=== PATIENT | female | born 1985 | race Caucasian/White ===

== ENCOUNTER → 2017-01-27 | Outpatient (CLI) | payer OTHER | LOC: FIMAGING 07:21 | PROVIDERS: ATTEND Obstetrics & Gynecology | DX: Z03.89 Encounter for observation for other suspected diseases and conditions ruled out (principal); Z15.09 Genetic susceptibility to other malignant neoplasm ==

== ENCOUNTER → 2018-05-04 | Outpatient (CLI) | payer OTHER | LOC: FIMAGING 12:27 | PROVIDERS: ATTEND Obstetrics & Gynecology | DX: O09.512 Supervision of elderly primigravida, second trimester (principal); Z3A.20 20 weeks gestation of pregnancy ==

== ENCOUNTER 2018-08-28 07:43 | Day surgery (SDC) | payer OTHER ==
--- NOTE | 2018-08-25 13:30 | PDGENHP ---
History and Physical - Chief Complaint breech presentation - History of Present Illness 33 yo G1 at 36w4d by LMP c/w 9 wk US, with breech presentation, desires attempt at External Cephalic Version. Office visit 08/25/18 - breech presentation confirmed by Dr. Garcia, along with MVP of 4.0 cm, and SHIVAM of 12.0 cm. C/S at 39 wk vs attempt at ECV discussed. Good FM, no VB, no LOF, no ssx preeclampsia. course c/b: 1) AMA - neg NIPT and no abnormalities on MFM US aat 20 wk. 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 Has had 4 colonoscopies with polyp removals. Last one 09/2017. 3) marginal cord insertion - EFW 51% at 20 wk, 75% at 30 wk 4) Anemia - 11.6/33.5 at 28 wk - pt on daily iron labs: O pos Rub Imm GBS pending at time of H&P on 08/25/18 13.9/39.2 early 1hr GTT 102 RPR NR HBsAG neg HIV neg Std panel neg UDS neg UA/U cx neg/neg Pap neg, HPV neg AFP neg Innatal neg Varicella Imm 28wk: 11.6/33.5 1 hr GTT 139 3 hr GTT 85/142/121/101 History Information - Allergies/Home Medication List Allergies/Adverse Reactions: No Known Allergies Allergy (Unverified 08/25/18 13:30) I have personally reviewed and updated: family history, medical history, social history, surgical history Past Medical History: Meds - pnv, DHA, iron, Vit D, Mag citrate - Past Medical History Additional medical history: 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 Asthma - no inhaler use since 2013 - Surgical History Additional surgical history: molr extractions. colonoscopy with polypectomy x 4 , last 10/02 - Family History Additional family history: M - Uterine Ca at 43, HTN. MGM - colon ca at 60. PGF - skin Ca. P cous - BPAD. P Aunt - migraines. P Unc - Crohn's dz. PGM - CAD, OR - Social History Smoking Status: Never smoked Alcohol Use: None Drug Use: None Review of Systems Review of Systems: ROS: 10pt was reviewed & negative except for what was stated in HPI & below Physical Exam Physical Exam: wt 184.8 lb 122/70 HR 80 Urine dip neg prot / neg gluc Constitutional: no apparent distress, appears nourished, not in pain Eyes: PERRL, anicteric sclera, EOMI Ears, Nose, Mouth, Throat: moist mucous membranes, hearing normal, ears appear normal Cardiovascular: regular rate and rhythym Respiratory: no respiratory distress, no rales or rhonchi, clear to auscultation Gastrointestinal: normoactive bowel sounds Genitourinary: no bladder fullness, other (uterus with fundal height of 40 cm. US done - breech presentation confirmed. SHIVAM = 12.0, MVP = 4.0, SVE - cl / 50% / high) Skin: warm, normal color Musculoskeletal: full muscle strength Neurologic: AAOx3 Psychiatric: interacting appropriately, not anxious Lymph, Heme, Immunologic: no cervical LAD Assessment & Plan Assessment: 33 G1 at 36w4d with breech presentation. Scheduled for ECV attempt at 0830 on 08/28/[address] Rivera as primary and I will be assisting. Pt given pre-op packet. Reviewed NPO after midnight, except may have clear fluid up until 3 hours prior to scheduled procedure. B/R/A of ECV discussed. Dr. Rivera to obtain written informed consent on morning of procedure. Pili Garcia MD, FACOG [facility] [place] [facility].
[2018-08-28] MEDS ORDERED: OLIVE OIL 118 ML BTL MISC ONE (07:45)
[2018-08-28] MEDS ORDERED: TERBUTALINE SULFATE 1 MG/ML VIAL IV ONE (07:45)
[2018-08-28 08:28] LABS: PLATELET COUNT 262 10^3/uL (150-400)
[2018-08-28 08:44] VITALS: BP 121/61
--- NOTE | 2018-08-28 12:27 | GPN ---
[f rep st] PROCEDURE NOTE DATE OF PROCEDURE: 08/28/2018 PLANNED PROCEDURE: External cephalic version. The patient is a 33-year-old 1, para 0, who was 37 weeks gestation who presented for an exter nal cephalic version for baby known to be in a non-vertex presentation. After proper consent, the pa tient was given intravenous terbutaline. status and maternal status remained reassuring. An u ltrasound that was done prior to the procedure, which confirmed the baby to be in a non-vertex presen tation. With assistance of Dr. Garcia an external cephalic version was performed. The baby was then f ound to be in the vertex presentation. Continuous monitoring was performed for an hour after the proc edure and baby remained with positive accelerations, no decelerations, and reassuring. Discharge ins tructions were reviewed with the patient. The patient also questioned with her history of having col d sores. She usually has prodromal symptoms. We discussed risks of transmitting cold sores to the b emmy, so the patient was agreeable to starting Valtrex. A prescription was given. The patient has a followup appointment on Tuesday. Labor precaution and kick counts were reviewed with the patient a nd the patient was discharged to home. /[id number]/MODL
== END 2018-08-28 11:04 | disposition home or self-care (01) ==
LOC: FOBOP 07:43
PROVIDERS: ATTEND Hospitalist
PROC: 10S0XZZ Reposition Products of Conception, External Approach (ICD-10-PCS; principal; 2018-08-28)
DX: O32.1XX0 Maternal care for breech presentation, not applicable or unspecified (principal); O99.013 Anemia complicating pregnancy, third trimester; O09.513 Supervision of elderly primigravida, third trimester; D64.9 Anemia, unspecified; Z86.010 Personal history of colon polyps; Z15.09 Genetic susceptibility to other malignant neoplasm; Z3A.36 36 weeks gestation of pregnancy
CPT/HCPCS: J3105

== ENCOUNTER 2018-09-27 15:40 | Observation (INO) | payer OTHER | END 2018-09-27 16:20 | disposition home or self-care (01) | LOC: FLD 15:40 | PROVIDERS: ADMIT Obstetrics & Gynecology; ATTEND Obstetrics & Gynecology | PROC: 0U7C7ZZ Dilation of Cervix, Via Natural or Artificial Opening (ICD-10-PCS; principal; 2018-09-27) | DX: O48.0 Post-term pregnancy (principal); O09.513 Supervision of elderly primigravida, third trimester; Z3A.41 41 weeks gestation of pregnancy ==

== ENCOUNTER 2018-09-28 06:00 | Inpatient (IN) | payer OTHER ==
[2018-09-28] MEDS ORDERED: OLIVE OIL 118 ML BTL MISC PRN (06:28)
[2018-09-28] MEDS ORDERED: MISOPROSTOL 200 MCG TAB PR PRN (06:28)
[2018-09-28] MEDS ORDERED: OXYTOCIN/RINGERS LACTATE 1,000 ML IV PRN (06:28)
[2018-09-28] MEDS ORDERED: LIDOCAINE 1% 300 MG/30 ML SDV SC PRN (06:28)
[2018-09-28] MEDS ORDERED: LR 1,000 ML IV PRN (06:28)
[2018-09-28] MEDS ORDERED: EPSOM SALT 454 GM TP PRN (06:28)
[2018-09-28] MEDS ORDERED: IBUPROFEN 600 MG TAB PO PRN (06:28)
[2018-09-28 06:52] LABS: PLATELET COUNT 260 10^3/uL (150-400)
[2018-09-28] MEDS ORDERED: TERBUTALINE SULFATE 1 MG/ML VIAL ONE (08:20)
[2018-09-28] MEDS ORDERED: LIDOCAINE 1% 300 MG/30 ML SDV ONE (08:20)
[2018-09-28] MEDS ORDERED: OLIVE OIL 118 ML BTL MISC ONE (08:20)
[2018-09-28] MEDS ORDERED: MISOPROSTOL 200 MCG TAB ONE (08:20)
[2018-09-28] MEDS ORDERED: AMMONIA AROMATIC 1 EACH AMP IH ONE (08:20)
[2018-09-28] MEDS ORDERED: OXYTOCIN/LR *STANDARD DOSE PROTOCOL IV SCH (08:30)
--- NOTE | 2018-09-28 10:54 | GHP ---
[f rep st] HISTORY AND PHYSICAL DATE OF ADMISSION: 09/28/2018 ADMITTING DIAGNOSES: 1. Intrauterine at 41 weeks and 3 days. 2. Induction of labor secondary to postdate . HISTORY OF PRESENT ILLNESS: The patient is a 33-year-old 1, para 0, at 41 weeks and 3 days with an estimated due date 09/28/2018 by LMP 12/12/2017, and consistent with ultrasound at 9 weeks. Patient presents to Labor and Delivery this morning status post Judd bulb placement last evening with Dr. Drake. Judd was placed without difficulty and inflated with 30 cc normal saline. The patient tolerated it well and states she had mild cramping and had no issues sleeping. She denies any leakage of fluid, vaginal bleeding, or any contractions. She states good movement noted by baby boy. Patient denies any headaches, visual changes, right upper quadrant or epigastric pain at this time. She does note increased swelling in lower extremities. She had an NST earlier in the week that was reactive and a fluid check that was upper normal at 22.5 cm. Patient has good care at [facility], and presented in her first trimester at 9 weeks. is complicated by advanced maternal age with negative genetic testing. Level 2 ultrasound was normal except for marginal cord insertion. On followup growth scan at 30 weeks and 3 days, an estimated weight was in 75th percentile. The patient is a positive Barrera syndrome mutation carrier and most recent colonoscopy was normal. She has an elevated BMI with an early 1-hour Glucola. She developed anemia of and is tolerating iron daily. The patient was noted to be breech at 36 weeks and had a successful version at 37 weeks. Patient received both flu vaccine and Tdap. GBS culture is negative. 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 PAST OB HISTORY: This is the patient's first . PAST PRESCRIPTIONIST HISTORY: Age of menarche 9. Menstrual cycles every regular, every 30 days for 5-7 days. LMP 12/12/2017. Positive test 01/16/2018. The patient does not have a history of abnormal Pap smears. wang ross used control pills and discontinued them May 2017 and then used condoms until November 2017. Patient has history of HSV1, and denies any genital lesions and denies exposure to any other STDs. CURRENT MEDICATIONS: Include [id number] vitamins with DHA, fish oil, vitamin D, magnesium, iron and Valtrex. ALLERGIES: No known drug allergies. PAST MEDICAL HISTORY: Asthma, the patient has never been intubated; she was hospitalized in 1984 secondary to croup; Barrera syndrome diagnosed at age 27; heart murmur. PAST SURGICAL HISTORY: [place] teeth extraction; cosmetic surgery on face; colonoscopy. PAST FAMILY HISTORY: Mother: Uterine cancer at age 43. Maternal grandmother: Colon cancer in her 60s. Paternal grandfather: Skin cancer. Paternal uncle : Crohn's disease. Paternal aunt: Migraine headaches. Paternal cousin: Bipolar disorder. SOCIAL HISTORY: Patient is and lives with her . 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 Denies any alcohol, tobacco, or illicit drug use currently. REVIEW OF SYSTEMS: 10-point review of systems is negative, pertinent positives noted in the HPI. LABS: First trimester H and H, 13.9 and 39.2, platelets 299. Blood type O positive, antibody negative. Early One-hour Glucola was 102. RPR nonreactive. Rubella immune. Hepatitis B surface antigen negative. HIV negative. Trio screen and standard panel negative. Urine drug screen, UA, and urine culture negative. Pap smear September 2015 normal, negative HPV. Single AFP negative. Innatal screen negative. Third trimester H and H, 11.6 and 33.5, platelets 292. One-hour Glucola 139. 3-hour Glucola was normal at 85, 142, 121, 101. GBS culture is negative. Varicella immune. PHYSICAL EXAMINATION: VITAL SIGNS: On admission the patient is afebrile at 35.7, heart rate 108, respirations 18, initial blood pressure is 156/88, repeat 151/81, and 137/91. GENERAL: Well-nourished, well-developed female. Alert and oriented x3. She appears nervous. SKIN: Warm, dry without rashes. NEURO: Grossly intact. CARDIOVASCULAR: Regular rate and rhythm. LUNGS: Clear to auscultation bilaterally. ABDOMEN: Gravid, soft, nontender. PELVIC: Judd bulb is in vagina; it was deflated and removed and cervix found to be about 2 cm , 50%, -3 station. EXTREMITIES: There is pedal edema. No calf tenderness. Normal reflexes without clonus. HEART TONES: Category 1 tracing, reassuring with a baseline 130 beats per minute, positive accelerations, no decelerations, moderate variability; on tocolysis, contractions are irregular. ASSESSMENT AND PLAN: Patient is a 33-year-old 1, para 0, at 41 weeks and 3 days who presents for a postdate induction of labor . 1. Admit to Labor and Delivery. 2. Pitocin started per protocol, Pitocin currently at 6 mu/minute. 3. GBS culture is negative. No prophylactic antibiotics are needed. 4. heart tones reassuring, Category 1 tracing. Will continue to monitor. 5. PIH labs are normal; will continue to monitor blood pressures; doubt preeclampsia at this time. 6. Patient is open to nitrous for pain control. /[id number]/MODL MTDSean
--- NOTE | 2018-09-28 14:33 | OBPROG ---
Labor Progress Note Assessment/Plan: Assessment: 33 y/o @ 41 3/7 weeks for postdate IOL Plan: Continue current management Pitocin at 9mu/min, currently susan q 2-3 min unable to increase RN examined pt and found no real cervical change, maybe thinner; SVE /-3 FHTs - Cat II tracing, with intermittent variable decels but overall reassuring Will reassess in a few hours to see if able to AROM and place IUPC 09/28/18 14:27 Subjective/Intrapartum Course: 09/28/18 14:32 Pt denies any pain with her ctx's at this time Objective: 09/28/18 06:40 09/28/18 08:30 Patient ABO/Rh O POSITIVE 09/28/18 06:40 Uric Acid 4.1 mg/dL (2.5-6.8) 09/28/18 08:30 Total Bilirubin 0.6 mg/dL (0.1-1.4) 09/28/18 08:30 Conjugated Bilirubin 0.2 mg/dL (0.0-0.5) 09/28/18 08:30 Unconjugated Bilirubin 0.4 mg/dL (0.0-1.1) 09/28/18 08:30 AST 21 IU/L (14-46) 09/28/18 08:30 ALT 20 IU/L (9-52) 09/28/18 08:30 Lactate Dehydrogenase 518 IU/L (313-618) 09/28/18 08:30 - SVE Dilation (cm): 2 Effacement (%): 75 (70) Station: -3 Membranes: Intact - Contraction Pattern Assessment Current Contraction Pattern: Regular (q2-3 min) - FHR Assessment Padilla FHR (bpm): 150 FHR Pattern Variability: Moderate FHR Category: 2 (intermittent variable decels noted) - AP Antepartum Course: 09/28/18 14:34 AMA with negative NIPT and normal Level II US; elev BMI with early 1-hr glucola ; marginal cord insertion with f/u growth scan at 30 weeks with an EFW 75%; + Barrera syndrome with recent neg. colonoscopy; breech at 36 weeks with successful version at 37 weeks; h/o HSV1-oral lesions only on prophylactic Valtrex; anemia of on iron Oxytocin Orders Assessment - Pre-Induction/Augmentation Assessment Gestational Age: 41 week(s) and 3 day(s) ICD10 Worksheet Patient Problems: Problems Problem Status Onset AMA (advanced maternal age) primigravida 35+ Acute Post-dates Acute - ICD10 Problem Qualifiers (1) Post-dates (2) AMA (advanced maternal age) primigravida 35+ Qualifiers: Trimester: third trimester Qualified Code(s): O09.513 - Supervision of elderly primigravida, third trimester
--- NOTE | 2018-09-28 18:29 | OBPROG ---
Labor Progress Note Assessment/Plan: Assessment: 33 y/o @ 41 3/7 weeks for postdate IOL Plan: Continue current management Pitocin at 14 mu/min, currently susan q 2-3 min SVE: 2-3/80/-3; not much change but thinner and not as posterior FHTs - Cat I tracing Attempted AROM, but unsuccessful Will reassess in a few hours 09/28/18 18:23 Subjective/Intrapartum Course: 09/28/18 14:32 Pt denies any pain with her ctx's at this time 09/28/18 18:29 Pt back in room from ambulating; she states pain with these ctx's when in bed are 4/10. Good FM noted. Objective: 09/28/18 06:40 09/28/18 08:30 Patient ABO/Rh O POSITIVE 09/28/18 06:40 Uric Acid 4.1 mg/dL (2.5-6.8) 09/28/18 08:30 Total Bilirubin 0.6 mg/dL (0.1-1.4) 09/28/18 08:30 Conjugated Bilirubin 0.2 mg/dL (0.0-0.5) 09/28/18 08:30 Unconjugated Bilirubin 0.4 mg/dL (0.0-1.1) 09/28/18 08:30 AST 21 IU/L (14-46) 09/28/18 08:30 ALT 20 IU/L (9-52) 09/28/18 08:30 Lactate Dehydrogenase 518 IU/L (313-618) 09/28/18 08:30 - SVE Dilation (cm): 2 (2-3) Effacement (%): 80 Station: -3 Membranes: Intact - Contraction Pattern Assessment Current Contraction Pattern: Regular (q2-3 min) - FHR Assessment Padilla FHR (bpm): 140 FHR Pattern Variability: Moderate FHR Category: 1 - AP Antepartum Course: 09/28/18 14:34 AMA with negative NIPT and normal Level II US; elev BMI with early 1-hr glucola ; marginal cord insertion with f/u growth scan at 30 weeks with an EFW 75%; + Barrera syndrome with recent neg. colonoscopy; breech at 36 weeks with successful version at 37 weeks; h/o HSV1-oral lesions only on prophylactic Valtrex; anemia of on iron Oxytocin Orders Assessment - Pre-Induction/Augmentation Assessment Gestational Age: 41 week(s) and 3 day(s) ICD10 Worksheet Patient Problems: Problems Problem Status Onset AMA (advanced maternal age) primigravida 35+ Acute Post-dates Acute - ICD10 Problem Qualifiers (1) Post-dates (2) AMA (advanced maternal age) primigravida 35+ Qualifiers: Trimester: third trimester Qualified Code(s): O09.513 - Supervision of elderly primigravida, third trimester
[2018-09-28] MEDS ORDERED: CALCIUM CARBONATE 500 MG CHEWABLE TAB PO PRN (18:31)
[2018-09-28] MEDS ORDERED: fentaNYL 100 MCG/2 ML INJ ONE (21:52)
[2018-09-28] MEDS ORDERED: PHENYLEPHRINE HCL 100 MCG/ML SYR ONE (21:52)
--- NOTE | 2018-09-28 21:53 | OBPROG ---
Labor Progress Note Assessment/Plan: Assessment: 33 y/o @ 41 3/7 weeks for postdate IOL Plan: After a long discussion with pt and options to move forward with AROM, placement of an epidural to help with relaxation, and continued progress to have a baby, pt decided to get an epidural at this time After epidural is placed and pt is comfortable, plan to AROM and place an IUPC to monitor for adequate labor FHTs - Cat I tracing Pitocin currently at 14 mu/min and good ctx pattern noted q2-3 min, but do not palpate strong on exam 09/28/18 21:49 Subjective/Intrapartum Course: 09/28/18 14:32 Pt denies any pain with her ctx's at this time 09/28/18 18:29 Pt back in room from ambulating; she states pain with these ctx's when in bed are 4/10. Good FM noted. 09/28/18 21:52 Pt just used the bathroom and noticed some blood when she wiped and some drops in the toilet. The ctx's are more painful when she is on her side. She is comfortable now with getting an epidural. Objective: 09/28/18 06:40 09/28/18 08:30 Patient ABO/Rh O POSITIVE 09/28/18 06:40 Uric Acid 4.1 mg/dL (2.5-6.8) 09/28/18 08:30 Total Bilirubin 0.6 mg/dL (0.1-1.4) 09/28/18 08:30 Conjugated Bilirubin 0.2 mg/dL (0.0-0.5) 09/28/18 08:30 Unconjugated Bilirubin 0.4 mg/dL (0.0-1.1) 09/28/18 08:30 AST 21 IU/L (14-46) 09/28/18 08:30 ALT 20 IU/L (9-52) 09/28/18 08:30 Lactate Dehydrogenase 518 IU/L (313-618) 09/28/18 08:30 - SVE Membranes: Intact - Contraction Pattern Assessment Current Contraction Pattern: Regular (q2-3 min) - FHR Assessment Padilla FHR (bpm): 140 FHR Pattern Variability: Moderate FHR Category: 1 - AP Antepartum Course: 09/28/18 14:34 AMA with negative NIPT and normal Level II US; elev BMI with early 1-hr glucola ; marginal cord insertion with f/u growth scan at 30 weeks with an EFW 75%; + Barrera syndrome with recent neg. colonoscopy; breech at 36 weeks with successful version at 37 weeks; h/o HSV1-oral lesions only on prophylactic Valtrex; anemia of on iron Oxytocin Orders Assessment - Pre-Induction/Augmentation Assessment Gestational Age: 41 week(s) and 3 day(s) ICD10 Worksheet Patient Problems: Problems Problem Status Onset AMA (advanced maternal age) primigravida 35+ Acute Post-dates Acute - ICD10 Problem Qualifiers (1) Post-dates (2) AMA (advanced maternal age) primigravida 35+ Qualifiers: Trimester: third trimester Qualified Code(s): O09.513 - Supervision of elderly primigravida, third trimester
[2018-09-28] MEDS ORDERED: fentaNYL 2MCG/ML/BUP 0.1% RTU 100 ML EP SCH (22:30)
[2018-09-28] MEDS ORDERED: ONDANSETRON 4 MG/2 ML VIAL IVP PRN (22:35)
[2018-09-28] MEDS ORDERED: PHENYLEPHRINE HCL 100 MCG/ML SYR IVP PRN (22:35)
--- NOTE | 2018-09-28 22:35 | PREANESOB ---
Obstetric Pre-Anesthesia Info - General Info Proposed Procedure: induced labor NPO Start Time: 19:30 : 1 Para: 0 ANIBAL: 09/18/18 Gestational Age: 41 week(s) and 3 day(s) - Info Status: Full Term FHR Pattern: Reassuring - Labor Status Cervical Dilation per last OB SVE: 2 (2-3) Station per last OB SVE: -3 Indications for Labor Analgesia: Augmentation of Labor, BP Control, Pain Control Labor Epidural: Yes Anesthesia Allergies/Adverse Reactions: Allergy/AdvReac Type Severity Reaction Status Date / Time No Known Allergies Allergy Unverified 08/25/18 13:30 Home Medications: Medication Instructions Recorded Fish Oil 1,000 mg Softgel 1 cap PO DAILY 09/28/18 Magnesium 1 tab PO DAILY 09/28/18 1 tab PO DAILY 09/28/18 Slow Fe 1 tab PO BID 09/28/18 Valtrex 1,000 mg PO DAILY 09/28/18 Vitamin D3 2000 units tab (OTC) 1 tab PO DAILY 09/28/18 Visit Medications: Generic Name Dose Route Start Last Admin Trade Name Freq PRN Reason Stop Dose Admin Calcium Carbonate 500 mg 09/28/18 18:31 09/28/18 19:29 Tums PO 03/27/19 18:30 500 mg TID PRN Administration Indigestion Lactated Ringer's 1,000 mls @ 0 mls/hr 09/28/18 06:28 09/28/18 08:38 Lr IV 09/29/18 06:27 1,000 mls PRN PRN Administration SEE PROTOCOL CONDITIONS Protocol Per Protocol Oxytocin/Lactated Ringer's 1,000 mls @ 125 mls/hr 09/28/18 06:28 Pitocin 20 Units/Lr (Premix) IV PRN PRN Post bleeding Oxytocin/Lactated Ringer's 500 mls @ 0 mls/hr 09/28/18 08:30 09/28/18 08:38 Pitocin 30 Units/Lr (Premix) IV 03/27/19 08:29 500 mls CONT NORM Administration Protocol Per Protocol Fentanyl/Bupivacaine HCl 100 mls @ 0 mls/hr 09/28/18 22:30 Fentanyl/Bupivacaine/Ns 2 Mcg/Ml 0.1% (Premix EP 10/08/18 22:29 CONT NORM Protocol As Directed Ibuprofen 600 mg 09/28/18 06:28 Motrin PO ONCE PRN post , pain Lidocaine HCl 300 mg 09/28/18 06:28 Lidocaine Hcl 1% SC 03/27/19 06:27 ONCE PRN episiotomy Magnesium Sulfate 454 gm 09/28/18 06:28 Epsom Salt TP 03/27/19 06:27 Q1H PRN perineal discomfort Misoprostol 800 - 1,000 mcg 09/28/18 06:28 Cytotec CO ONCE PRN Vaginal Atony/Bleeding Frederick Oil 118 ml 09/28/18 06:28 Sweet Oil MISC 03/27/19 06:27 ONCE PRN perineal massage Discontinued Medications Generic Name Dose Route Start Last Admin Trade Name Freq PRN Reason Stop Dose Admin Ammonia (Aromatic Spirit) Confirm 09/28/18 08:20 Ammonia Aromatic Administered 09/28/18 08:21 Dose 1 each IH .STK-MED ONE Fentanyl Confirm 09/28/18 21:52 Sublimaze Administered 09/28/18 21:53 Dose 100 mcg .ROUTE .STK-MED ONE Lidocaine HCl Confirm 09/28/18 08:20 Lidocaine Hcl 1% Administered 09/28/18 08:21 Dose 300 mg .ROUTE .STK-MED ONE Misoprostol Confirm 09/28/18 08:20 Cytotec Administered 09/28/18 08:21 Dose 1,000 mcg .ROUTE .STK-MED ONE Frederick Oil Confirm 09/28/18 08:20 Sweet Oil Administered 09/28/18 08:21 Dose 118 ml MISC .STK-MED ONE Phenylephrine HCl Confirm 09/28/18 21:52 Neosynephrine Administered 09/28/18 21:53 Dose 1,000 mcg .ROUTE .STK-MED ONE Terbutaline Sulfate Confirm 09/28/18 08:20 Brethine Administered 09/28/18 08:21 Dose 1 mg .ROUTE .STK-MED ONE - Anesthesia History Response to Local Anesthetics: Normal Anesthesia & Operative History: No Prior Problems Family Anesthesia History: Not Applicable - Vital Signs Height/Weight (Nursing): Height 152.4 cm Weight 85.275 kg - Focused Exam Mallampati Score: Class 2 Mouth exam: normal dental/mouth exam Pulmonary: no respiratory distress Cardiovascular: regular rate and rhythym Labs: 09/28/18 06:40 09/28/18 08:30 Patient ABO/Rh O POSITIVE 09/28/18 06:40 Uric Acid 4.1 mg/dL (2.5-6.8) 09/28/18 08:30 Total Bilirubin 0.6 mg/dL (0.1-1.4) 09/28/18 08:30 Conjugated Bilirubin 0.2 mg/dL (0.0-0.5) 09/28/18 08:30 Unconjugated Bilirubin 0.4 mg/dL (0.0-1.1) 09/28/18 08:30 AST 21 IU/L (14-46) 09/28/18 08:30 ALT 20 IU/L (9-52) 09/28/18 08:30 Lactate Dehydrogenase 518 IU/L (313-618) 09/28/18 08:30 - Plan Consent Signed and on Chart: Yes Patient/Guardian Understands and Agrees to Plan: Yes
[2018-09-28] MEDS ORDERED: LR 500 ML IV SCH (23:00)
--- NOTE | 2018-09-28 23:20 | OBPROG ---
Labor Progress Note Assessment/Plan: Assessment: 33 y/o @ 41 3/7 weeks for postdate IOL Plan: Pt is s/p epidural and comfortable Cervical exam unchanged; AROM attempted and head now ballotable FHTs - Cat I strip; cont to monitor Pitocin at 14 mu/min, will cont to increase as long as no tachysystole seen and baby tolerates Bloody show noted after exam Will reassess in a few hours 09/28/18 23:16 Subjective/Intrapartum Course: 09/28/18 14:32 Pt denies any pain with her ctx's at this time 09/28/18 18:29 Pt back in room from ambulating; she states pain with these ctx's when in bed are 4/10. Good FM noted. 09/28/18 21:52 Pt just used the bathroom and noticed some blood when she wiped and some drops in the toilet. The ctx's are more painful when she is on her side. She is comfortable now with getting an epidural. 09/28/18 23:20 Pt is comfortable, s/p epidural. Objective: 09/28/18 06:40 09/28/18 08:30 Patient ABO/Rh O POSITIVE 09/28/18 06:40 Uric Acid 4.1 mg/dL (2.5-6.8) 09/28/18 08:30 Total Bilirubin 0.6 mg/dL (0.1-1.4) 09/28/18 08:30 Conjugated Bilirubin 0.2 mg/dL (0.0-0.5) 09/28/18 08:30 Unconjugated Bilirubin 0.4 mg/dL (0.0-1.1) 09/28/18 08:30 AST 21 IU/L (14-46) 09/28/18 08:30 ALT 20 IU/L (9-52) 09/28/18 08:30 Lactate Dehydrogenase 518 IU/L (313-618) 09/28/18 08:30 - SVE Dilation (cm): 2 Effacement (%): 80 Station: -3 Membranes: Intact (AROM attempted and head ballotable) - Contraction Pattern Assessment Current Contraction Pattern: Regular (q2-3 min) - FHR Assessment Padilla FHR (bpm): 130 FHR Pattern Variability: Moderate FHR Category: 1 - AP Antepartum Course: 09/28/18 14:34 AMA with negative NIPT and normal Level II US; elev BMI with early 1-hr glucola ; marginal cord insertion with f/u growth scan at 30 weeks with an EFW 75%; + Barrera syndrome with recent neg. colonoscopy; breech at 36 weeks with successful version at 37 weeks; h/o HSV1-oral lesions only on prophylactic Valtrex; anemia of on iron Oxytocin Orders Assessment - Pre-Induction/Augmentation Assessment Gestational Age: 41 week(s) and 3 day(s) ICD10 Worksheet Patient Problems: Problems Problem Status Onset AMA (advanced maternal age) primigravida 35+ Acute Post-dates Acute - ICD10 Problem Qualifiers (1) Post-dates (2) AMA (advanced maternal age) primigravida 35+ Qualifiers: Trimester: third trimester Qualified Code(s): O09.513 - Supervision of elderly primigravida, third trimester
--- NOTE | 2018-09-29 05:44 | OBPROG ---
Labor Progress Note Assessment/Plan: Assessment: 33 y/o @ 41 4/7 weeks for postdate IOL HD # 2 Plan: Pt slept throughout the night Pt reexamined and cervix is noted to be more anterior, but no change in dilation and doesn't seem to be as effaced since easier to reach-exam reflects mechanical dilation from blas bulb Pitocin at 20 mu/min Plan to stop Pitocin for now, have pt eat breakfast and then reassess; ?further cervical ripening FHTs - Cat I tracing 09/29/18 05:52 Subjective/Intrapartum Course: 09/28/18 14:32 Pt denies any pain with her ctx's at this time 09/28/18 18:29 Pt back in room from ambulating; she states pain with these ctx's when in bed are 4/10. Good FM noted. 09/28/18 21:52 Pt just used the bathroom and noticed some blood when she wiped and some drops in the toilet. The ctx's are more painful when she is on her side. She is comfortable now with getting an epidural. 09/28/18 23:20 Pt is comfortable, s/p epidural. 09/29/18 05:44 Pt slept throughout the night. Objective: 09/28/18 06:40 09/28/18 08:30 Patient ABO/Rh O POSITIVE 09/28/18 06:40 Uric Acid 4.1 mg/dL (2.5-6.8) 09/28/18 08:30 Total Bilirubin 0.6 mg/dL (0.1-1.4) 09/28/18 08:30 Conjugated Bilirubin 0.2 mg/dL (0.0-0.5) 09/28/18 08:30 Unconjugated Bilirubin 0.4 mg/dL (0.0-1.1) 09/28/18 08:30 AST 21 IU/L (14-46) 09/28/18 08:30 ALT 20 IU/L (9-52) 09/28/18 08:30 Lactate Dehydrogenase 518 IU/L (313-618) 09/28/18 08:30 - SVE Dilation (cm): 2 Effacement (%): Less than 50 (feel that cervix is not that effaced now since more anterior and easier to reach) Station: -3 Membranes: Intact (AROM attempted and head ballotable) - Contraction Pattern Assessment Current Contraction Pattern: Irregular (q2-6 min) - FHR Assessment Padilla FHR (bpm): 130 FHR Pattern Variability: Moderate FHR Category: 1 - AP Antepartum Course: 09/28/18 14:34 AMA with negative NIPT and normal Level II US; elev BMI with early 1-hr glucola ; marginal cord insertion with f/u growth scan at 30 weeks with an EFW 75%; + 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 Oxytocin Orders Assessment - Pre-Induction/Augmentation Assessment Gestational Age: 41 week(s) and 3 day(s) ICD10 Worksheet Patient Problems: Problems Problem Status Onset AMA (advanced maternal age) primigravida 35+ Acute Post-dates Acute - ICD10 Problem Qualifiers (1) Post-dates (2) AMA (advanced maternal age) primigravida 35+ Qualifiers: Trimester: third trimester Qualified Code(s): O09.513 - Supervision of elderly primigravida, third trimester
[2018-09-29] MEDS ORDERED: fentaNYL 200 MCG, BUPIVACAINE 0.5% 20 ML in NS 100 ML EP SCH (06:30)
--- NOTE | 2018-09-29 09:34 | OBPROG ---
Labor Progress Note Assessment/Plan: Assessment: 33 G1 at 41w4d undergoing PD IOL. Epidural in place and effective. Cephalic presentation confirmed again on US. No contractions after pitocin stopped about 4 hours ago. Pt ate. Plan: Restart pitocin. Once in a good pattern, will attempt to AROM. B/R/A of pitocin discussed. EFW 8.5 lb Pili Garcia MD, FACOG [facility] 09/29/18 09:31 Subjective/Intrapartum Course: 09/28/18 14:32 Pt denies any pain with her ctx's at this time 09/28/18 18:29 Pt back in room from ambulating; she states pain with these ctx's when in bed are 4/10. Good FM noted. 09/28/18 21:52 Pt just used the bathroom and noticed some blood when she wiped and some drops in the toilet. The ctx's are more painful when she is on her side. She is comfortable now with getting an epidural. 09/28/18 23:20 Pt is comfortable, s/p epidural. 09/29/18 05:44 Pt slept throughout the night. 09/29/18 09:36 Pt able to get some sleep, feels a little rested. Had some bloody show this morning. Not feeling any contractions. Ate breakfast. Objective: 09/28/18 06:40 09/28/18 08:30 Patient ABO/Rh O POSITIVE 09/28/18 06:40 Uric Acid 4.1 mg/dL (2.5-6.8) 09/28/18 08:30 Total Bilirubin 0.6 mg/dL (0.1-1.4) 09/28/18 08:30 Conjugated Bilirubin 0.2 mg/dL (0.0-0.5) 09/28/18 08:30 Unconjugated Bilirubin 0.4 mg/dL (0.0-1.1) 09/28/18 08:30 AST 21 IU/L (14-46) 09/28/18 08:30 ALT 20 IU/L (9-52) 09/28/18 08:30 Lactate Dehydrogenase 518 IU/L (313-618) 09/28/18 08:30 36.2 106 95% on RA 130/77 US - confirms cephalic presentation abd - soft, gravid, NT perineum - some bloody show present SVE not repeated at this exam. 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 Oxytocin Orders Assessment - Pre-Induction/Augmentation Assessment Presentation: Vertex, Left Occiput Anterior Gestational Age: 41 week(s) and 3 day(s) Estimated Weight: 4066-2471 Current Contraction Pattern: Irregular - Heart Rate Pattern Padilla FHR Baseline (bpm): 135 FHR Category: 1 FHR Pattern Variability: Moderate FHR Accelerations: Present FHR Decelerations: Variable (rare to 120) - Moss's Score Dilation: 1-2cm Effacement: 80+ Station: -3 Cervix: Medium Cervix Position: Anterior Moss Score Total: 7 - Induction/Augmentation Consent Risks/Benefits of Procedure Reviewed/Pt Agrees to Proceed: Yes ICD10 Worksheet Patient Problems: Problems Problem Status Onset AMA (advanced maternal age) primigravida 35+ Acute Post-dates Acute
--- NOTE | 2018-09-29 11:47 | OBPROG ---
Labor Progress Note Assessment/Plan: Assessment: 33 G1 at 41w4d undergoing PD IOL. Epidural in place and effective. Cephalic presentation confirmed again on US. No contractions after pitocin stopped about 4 hours ago. Pt ate. Plan: Restart pitocin. Once in a good pattern, will attempt to AROM. B/R/A of pitocin discussed. EFW 8.5 lb Pili Garcia MD, FACOG [facility] 09/29/18 09:31 A/P: 33 G1 undergoing PD IOL at 41w4d. No progress since pitocin restarted over 1.5 hours ago. Concern for arrhythmia for 20 min - appears to have resolved now. Will continue to observe. Currently ctxn pattern not adequate, and with fetus ballotable, would prefer not to attempt AROM at this point. Discussed my concern with pt and - as to why no progress has been made, concerns about bony pelvis structure limiting descent. Will continue to monitor and continue pitocin, hoping to get vertex well applied to cervix then plan AROM. Pili Garcia MD, FACOG 09/29/18 11:28 Subjective/Intrapartum Course: 09/28/18 14:32 Pt denies any pain with her ctx's at this time 09/28/18 18:29 Pt back in room from ambulating; she states pain with these ctx's when in bed are 4/10. Good FM noted. 09/28/18 21:52 Pt just used the bathroom and noticed some blood when she wiped and some drops in the toilet. The ctx's are more painful when she is on her side. She is comfortable now with getting an epidural. 09/28/18 23:20 Pt is comfortable, s/p epidural. 09/29/18 05:44 Pt slept throughout the night. 09/29/18 09:36 Pt able to get some sleep, feels a little rested. Had some bloody show this morning. Not feeling any contractions. Ate breakfast. 09/29/18 11:47 Pt was sleeping soundly. Easily aroused. Objective: 09/28/18 06:40 09/28/18 08:30 Patient ABO/Rh O POSITIVE 09/28/18 06:40 Uric Acid 4.1 mg/dL (2.5-6.8) 09/28/18 08:30 Total Bilirubin 0.6 mg/dL (0.1-1.4) 09/28/18 08:30 Conjugated Bilirubin 0.2 mg/dL (0.0-0.5) 09/28/18 08:30 Unconjugated Bilirubin 0.4 mg/dL (0.0-1.1) 09/28/18 08:30 AST 21 IU/L (14-46) 09/28/18 08:30 ALT 20 IU/L (9-52) 09/28/18 08:30 Lactate Dehydrogenase 518 IU/L (313-618) 09/28/18 08:30 Went in to examine pt as FHR tracing had about 20 min of minimal variability with repetitive variable decels 1-5 per minute, to 125, for 1 second, from baseline of 140. This resolved with position change. SVE - 2- / ballotable - SVE Dilation (cm): 2 Effacement (%): 80 Membranes: Intact (did not attempt AROM as vertex not well applied. 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 - Physical Exam Estimated Weight: [id number] Oxytocin Orders Assessment - Pre-Induction/Augmentation Assessment Presentation: Vertex, Left Occiput Anterior Gestational Age: 41 week(s) and 3 day(s) Estimated Weight: [id number] ICD10 Worksheet Patient Problems: Problems Problem Status Onset AMA (advanced maternal age) primigravida 35+ Acute Post-dates Acute
--- NOTE | 2018-09-29 15:21 | OBPROG ---
Labor Progress Note Assessment/Plan: Assessment: 33 G1 at 41w4d undergoing PD IOL. Epidural in place and effective. Cephalic presentation confirmed again on US. No contractions after pitocin stopped about 4 hours ago. Pt ate. Plan: Restart pitocin. Once in a good pattern, will attempt to AROM. B/R/A of pitocin discussed. EFW 8.5 lb Pili Garcia MD, FACOG [facility] 09/29/18 09:31 A/P: 33 G1 undergoing PD IOL at 41w4d. No progress since pitocin restarted over 1.5 hours ago. Concern for arrhythmia for 20 min - appears to have resolved now. Will continue to observe. Currently ctxn pattern not adequate, and with fetus ballotable, would prefer not to attempt AROM at this point. Discussed my concern with pt and - as to why no progress has been made, concerns about bony pelvis structure limiting descent. Will continue to monitor and continue pitocin, hoping to get vertex well applied to cervix then plan AROM. Pili Garcia MD, FACOG 09/29/18 11:28 A/P: 33 G1 at 41w1d undergoing PD IOL - slow progress. Successful AROM - copious amounts of clear fluid. Continue pitocin - currently at 18miu/hour. Pili Garcia MD, FACOG 09/29/18 15:17 Subjective/Intrapartum Course: 09/28/18 14:32 Pt denies any pain with her ctx's at this time 09/28/18 18:29 Pt back in room from ambulating; she states pain with these ctx's when in bed are 4/10. Good FM noted. 09/28/18 21:52 Pt just used the bathroom and noticed some blood when she wiped and some drops in the toilet. The ctx's are more painful when she is on her side. She is comfortable now with getting an epidural. 09/28/18 23:20 Pt is comfortable, s/p epidural. 09/29/18 05:44 Pt slept throughout the night. 09/29/18 09:36 Pt able to get some sleep, feels a little rested. Had some bloody show this morning. Not feeling any contractions. Ate breakfast. 09/29/18 11:47 Pt was sleeping soundly. Easily aroused. Objective: 09/28/18 06:40 09/28/18 08:30 Patient ABO/Rh O POSITIVE 09/28/18 06:40 Uric Acid 4.1 mg/dL (2.5-6.8) 09/28/18 08:30 Total Bilirubin 0.6 mg/dL (0.1-1.4) 09/28/18 08:30 Conjugated Bilirubin 0.2 mg/dL (0.0-0.5) 09/28/18 08:30 Unconjugated Bilirubin 0.4 mg/dL (0.0-1.1) 09/28/18 08:30 AST 21 IU/L (14-46) 09/28/18 08:30 ALT 20 IU/L (9-52) 09/28/18 08:30 Lactate Dehydrogenase 518 IU/L (313-618) 09/28/18 08:30 Gen - pleasant, NAD SVE - 290 high, but head no longer ballotable AROM performed. Copious amounts of clear fluid. - SVE Dilation (cm): 2 Effacement (%): 90 Station: -3 Membranes: AROM (copious amounts), Intact (did not attempt AROM as vertex not well applied. 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 - Physical Exam Estimated Weight: 8223-9013 Oxytocin Orders Assessment - Pre-Induction/Augmentation Assessment Presentation: Vertex, Left Occiput Anterior Gestational Age: 41 week(s) and 3 day(s) Estimated Weight: 4517-5531 ICD10 Worksheet Patient Problems: Problems Problem Status Onset AMA (advanced maternal age) primigravida 35+ Acute Post-dates Acute
--- NOTE | 2018-09-29 18:23 | OBPROG ---
Labor Progress Note Assessment/Plan: Assessment: 33 G1 at 41w4d undergoing PD IOL. Epidural in place and effective. Cephalic presentation confirmed again on US. No contractions after pitocin stopped about 4 hours ago. Pt ate. Plan: Restart pitocin. Once in a good pattern, will attempt to AROM. B/R/A of pitocin discussed. EFW 8.5 lb Pili Garcia MD, FACOG [facility] 09/29/18 09:31 A/P: 33 G1 undergoing PD IOL at 41w4d. No progress since pitocin restarted over 1.5 hours ago. Concern for arrhythmia for 20 min - appears to have resolved now. Will continue to observe. Currently ctxn pattern not adequate, and with fetus ballotable, would prefer not to attempt AROM at this point. Discussed my concern with pt and - as to why no progress has been made, concerns about bony pelvis structure limiting descent. Will continue to monitor and continue pitocin, hoping to get vertex well applied to cervix then plan AROM. Pili Garcia MD, FACOG 09/29/18 11:28 A/P: 33 G1 at 41w1d undergoing PD IOL - slow progress. Successful AROM - copious amounts of clear fluid. Continue pitocin - currently at 18miu/hour. Pili Garcia MD, FACOG 09/29/18 15:17 A/P: 33 G1 at 41w1d, PD IOL, no progress since AROM - over 3 hours. IUPC placed, and discussed if no progress with adequate contractions, discussed proceeding with C/S. Will try more position changes. B/R/A of C/S discussed. Will reassess. Pili Garcia MD, FACOG 09/29/18 18:19 Subjective/Intrapartum Course: 09/28/18 14:32 Pt denies any pain with her ctx's at this time 09/28/18 18:29 Pt back in room from ambulating; she states pain with these ctx's when in bed are 4/10. Good FM noted. 09/28/18 21:52 Pt just used the bathroom and noticed some blood when she wiped and some drops in the toilet. The ctx's are more painful when she is on her side. She is comfortable now with getting an epidural. 09/28/18 23:20 Pt is comfortable, s/p epidural. 09/29/18 05:44 Pt slept throughout the night. 09/29/18 09:36 Pt able to get some sleep, feels a little rested. Had some bloody show this morning. Not feeling any contractions. Ate breakfast. 09/29/18 11:47 Pt was sleeping soundly. Easily aroused. 09/29/18 18:22 Pt comfortable, has been leaking fluid. Still optimistic but realistic about increasing possibility of C/S. Objective: 09/28/18 06:40 09/28/18 08:30 Patient ABO/Rh O POSITIVE 09/28/18 06:40 Uric Acid 4.1 mg/dL (2.5-6.8) 09/28/18 08:30 Total Bilirubin 0.6 mg/dL (0.1-1.4) 09/28/18 08:30 Conjugated Bilirubin 0.2 mg/dL (0.0-0.5) 09/28/18 08:30 Unconjugated Bilirubin 0.4 mg/dL (0.0-1.1) 09/28/18 08:30 AST 21 IU/L (14-46) 09/28/18 08:30 ALT 20 IU/L (9-52) 09/28/18 08:30 Lactate Dehydrogenase 518 IU/L (313-618) 09/28/18 08:30 - SVE Dilation (cm): 2 Effacement (%): 90 Station: -3 Membranes: AROM (copious amounts), Intact (did not attempt AROM as vertex not well applied. 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 - Physical Exam Estimated Weight: [id number] Oxytocin Orders Assessment - Pre-Induction/Augmentation Assessment Presentation: Vertex, Left Occiput Anterior Gestational Age: 41 week(s) and 3 day(s) Estimated Weight: 9465-8324 ICD10 Worksheet Patient Problems: Problems Problem Status Onset AMA (advanced maternal age) primigravida 35+ Acute Post-dates Acute
[2018-09-29] MEDS ORDERED: ceFAZolin 2 GM/DEXTROSE 100 ML IV ONE (21:50)
--- NOTE | 2018-09-29 21:50 | OBPROG ---
Labor Progress Note Assessment/Plan: Assessment: 35 G1 at 41w4d undergoing PD IOL. Epidural in place and effective. Cephalic presentation confirmed again on US. No contractions after pitocin stopped about 4 hours ago. Pt ate. Plan: Restart pitocin. Once in a good pattern, will attempt to AROM. B/R/A of pitocin discussed. EFW 8.5 lb Pili Garcia MD, FACOG [facility] 09/29/18 09:31 A/P: 33 G1 undergoing PD IOL at 41w4d. No progress since pitocin restarted over 1.5 hours ago. Concern for arrhythmia for 20 min - appears to have resolved now. Will continue to observe. Currently ctxn pattern not adequate, and with fetus ballotable, would prefer not to attempt AROM at this point. Discussed my concern with pt and - as to why no progress has been made, concerns about bony pelvis structure limiting descent. Will continue to monitor and continue pitocin, hoping to get vertex well applied to cervix then plan AROM. Pili Garcia MD, FACOG 09/29/18 11:28 A/P: 33 G1 at 41w4d undergoing PD IOL - slow progress. Successful AROM - copious amounts of clear fluid. Continue pitocin - currently at 18miu/hour. Pili Garcia MD, FACOG 09/29/18 15:17 A/P: 33 G1 at 41w4d, PD IOL, no progress since AROM - over 3 hours. IUPC placed, and discussed if no progress with adequate contractions, discussed proceeding with C/S. Will try more position changes. B/R/A of C/S discussed. Will reassess. Pili Garcia MD, FACOG 09/29/18 18:19 09/29/18 21:46 A/P: 35 G1 at 41w4d, arrest of dilation and descent, in setting of PD IOL . No cervical change in over 3 hours since AROM performed. Unable to get adequate ctxn pattern despite pitocin up to 26miu/hour. Will proceed with primary Low transverse C/S. Written informed consent obtained. Will proceed. Pili Garcia MD, FACOG Subjective/Intrapartum Course: 09/28/18 14:32 Pt denies any pain with her ctx's at this time 09/28/18 18:29 Pt back in room from ambulating; she states pain with these ctx's when in bed are 4/10. Good FM noted. 09/28/18 21:52 Pt just used the bathroom and noticed some blood when she wiped and some drops in the toilet. The ctx's are more painful when she is on her side. She is comfortable now with getting an epidural. 09/28/18 23:20 Pt is comfortable, s/p epidural. 09/29/18 05:44 Pt slept throughout the night. 09/29/18 09:36 Pt able to get some sleep, feels a little rested. Had some bloody show this morning. Not feeling any contractions. Ate breakfast. 09/29/18 11:47 Pt was sleeping soundly. Easily aroused. 09/29/18 18:22 Pt comfortable, has been leaking fluid. Still optimistic but realistic about increasing possibility of C/S. 09/29/18 21:53 pt feeling some more pressure and had some bloody show. Objective: 09/28/18 06:40 09/28/18 08:30 Patient ABO/Rh O POSITIVE 09/28/18 06:40 Uric Acid 4.1 mg/dL (2.5-6.8) 09/28/18 08:30 Total Bilirubin 0.6 mg/dL (0.1-1.4) 09/28/18 08:30 Conjugated Bilirubin 0.2 mg/dL (0.0-0.5) 09/28/18 08:30 Unconjugated Bilirubin 0.4 mg/dL (0.0-1.1) 09/28/18 08:30 AST 21 IU/L (14-46) 09/28/18 08:30 ALT 20 IU/L (9-52) 09/28/18 08:30 Lactate Dehydrogenase 518 IU/L (313-618) 09/28/18 08:30 - SVE Dilation (cm): 2 Effacement (%): 90 Station: -3 Membranes: AROM (copious amounts), Intact (did not attempt AROM as vertex not well applied. 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 - Physical Exam Estimated Weight: [id number] Oxytocin Orders Assessment - Pre-Induction/Augmentation Assessment Presentation: Vertex, Left Occiput Anterior Gestational Age: 41 week(s) and 3 day(s) Estimated Weight: [id number] ICD10 Worksheet Patient Problems: Problems Problem Status Onset AMA (advanced maternal age) primigravida 35+ Acute Post-dates Acute
[2018-09-29] MEDS ORDERED: LIDO/EPI 2% **for epidural** 20 ML SDV ONE (21:51)
[2018-09-29] MEDS ORDERED: AZITHROMYCIN IV 500 MG in NS 250 ML IV ONE (21:52)
[2018-09-29] MEDS ORDERED: METOCLOPRAMIDE 10 MG/2 ML VIAL ONE (22:17)
[2018-09-29] MEDS ORDERED: ONDANSETRON 4 MG/2 ML VIAL ONE (22:20)
[2018-09-29] MEDS ORDERED: morphINE PF 5 MG/10 ML INJ ONE (22:38)
[2018-09-29] MEDS ORDERED: MEPERIDINE 25 MG/0.5 ML AMP IVP PRN (22:50)
[2018-09-29] MEDS ORDERED: fentaNYL 100 MCG/2 ML INJ IVP PRN (22:50)
[2018-09-29] MEDS ORDERED: PHENYLEPHRINE HCL 100 MCG/ML SYR IVP PRN (22:50)
[2018-09-29] MEDS ORDERED: ONDANSETRON 4 MG/2 ML VIAL IVP PRN (22:50)
[2018-09-29] MEDS ORDERED: HYDROmorphONE/DILAUDID 1 MG/ML INJ IVP PRN (22:50)
[2018-09-29] MEDS ORDERED: OXYCODONE/APAP 5/325 TAB PO PRN (22:50)
[2018-09-29] MEDS ORDERED: METOCLOPRAMIDE 10 MG/2 ML VIAL IVP PRN (22:50)
[2018-09-29] MEDS ORDERED: NALOXONE HCL 0.4 MG/ML INJ IVP PRN ×2 (22:50→22:52)
--- NOTE | 2018-09-29 22:50 | PREANESOB ---
Obstetric Pre-Anesthesia Info - General Info Proposed Procedure: : 1 Para: 0 ANIBAL: 09/18/18 Gestational Age: 41 week(s) and 3 day(s) - Labor Status Cervical Dilation per last OB SVE: 2 Station per last OB SVE: -3 Amniotic Fluid Color: Clear Section History: Primary Indications for Current Section: Arrest of Dilation Labor Epidural: Yes Anesthesia Allergies/Adverse Reactions: Allergy/AdvReac Type Severity Reaction Status Date / Time No Known Allergies Allergy Unverified 08/25/18 13:30 Home Medications: Medication Instructions Recorded Fish Oil 1,000 mg Softgel 1 cap PO DAILY 09/28/18 Magnesium 1 tab PO DAILY 09/28/18 1 tab PO DAILY 09/28/18 Slow Fe 1 tab PO BID 09/28/18 Valtrex 1,000 mg PO DAILY 09/28/18 Vitamin D3 2000 units tab (OTC) 1 tab PO DAILY 09/28/18 Visit Medications: Generic Name Dose Route Start Last Admin Trade Name Freq PRN Reason Stop Dose Admin Calcium Carbonate 500 mg 09/28/18 18:31 09/28/18 19:29 Tums PO 03/27/19 18:30 500 mg TID PRN Administration Indigestion Oxytocin/Lactated Ringer's 1,000 mls @ 125 mls/hr 09/28/18 06:28 Pitocin 20 Units/Lr (Premix) IV PRN PRN Post bleeding Oxytocin/Lactated Ringer's 500 mls @ 0 mls/hr 09/28/18 08:30 09/28/18 08:38 Pitocin 30 Units/Lr (Premix) IV 03/27/19 08:29 500 mls CONT NORM Administration Protocol Per Protocol Lactated Ringer's 500 mls @ 0 mls/hr 09/28/18 23:00 Lr IV 03/27/19 22:59 CONT NORM As Directed Fentanyl 200 mcg/ Bupivacaine 100 mls @ 0 mls/hr 09/29/18 06:30 09/29/18 06: 47 HCl 20 ml/ Sodium Chloride EP 10/09/18 06:29 100 mls CONT NORM Administration Protocol As Directed Azithromycin 500 mg/ Sodium 255 mls @ 255 mls/hr 09/29/18 21:52 09/29/18 22: 00 Chloride IV 09/29/18 22:51 255 mls ONCE ONE Administration Protocol Ibuprofen 600 mg 09/28/18 06:28 Motrin PO ONCE PRN post , pain Lidocaine HCl 300 mg 09/28/18 06:28 Lidocaine Hcl 1% SC 03/27/19 06:27 ONCE PRN episiotomy Magnesium Sulfate 454 gm 09/28/18 06:28 Epsom Salt TP 03/27/19 06:27 Q1H PRN perineal discomfort Misoprostol 800 - 1,000 mcg 09/28/18 06:28 Cytotec OR ONCE PRN Vaginal Atony/Bleeding [place] Oil 118 ml 09/28/18 06:28 Sweet Oil MISC 03/27/19 06:27 ONCE PRN perineal massage Phenylephrine HCl 100 mcg 09/28/18 22:35 Neosynephrine IVP 03/27/19 22:34 .Q2M PRN Hypotension Discontinued Medications Generic Name Dose Route Start Last Admin Trade Name Freq PRN Reason Stop Dose Admin Ammonia (Aromatic Spirit) Confirm 09/28/18 08:20 Ammonia Aromatic Administered 09/28/18 08:21 Dose 1 each IH .STK-MED ONE Fentanyl Confirm 09/28/18 21:52 Sublimaze Administered 09/28/18 21:53 Dose 100 mcg .ROUTE .STK-MED ONE Lactated Ringer's 1,000 mls @ 0 mls/hr 09/28/18 06:28 09/28/18 08:38 Lr IV 09/29/18 06:27 1,000 mls PRN PRN Administration SEE PROTOCOL CONDITIONS Protocol Per Protocol Fentanyl/Bupivacaine HCl 100 mls @ 0 mls/hr 09/28/18 22:30 Fentanyl/Bupivacaine/Ns 2 Mcg/Ml 0.1% (Premix EP 09/29/18 06:30 CONT NORM Protocol As Directed Cefazolin Sodium/Dextrose 100 mls @ 200 mls/hr 09/29/18 21:50 09/29/18 22:00 Ancef IV 09/29/18 22:19 100 mls ONCALL ONE Administration Protocol Lidocaine HCl Confirm 09/28/18 08:20 Lidocaine Hcl 1% Administered 09/28/18 08:21 Dose 300 mg .ROUTE .STK-MED ONE Lidocaine/Epinephrine Confirm 09/29/18 21:51 Xylocaine 2%-Epi 1:200,000 Administered 09/29/18 21:52 Dose 20 ml .ROUTE .STK-MED ONE Metoclopramide HCl Confirm 09/29/18 22:17 Reglan Injection Administered 09/29/18 22:18 Dose 10 mg .ROUTE .STK-MED ONE Misoprostol Confirm 09/28/18 08:20 Cytotec Administered 09/28/18 08:21 Dose 1,000 mcg .ROUTE .STK-MED ONE Morphine Sulfate Confirm 09/29/18 22:38 Morphine Pf 5 Mg/10 Ml Administered 09/29/18 22:39 Dose 5 mg .ROUTE .STK-MED ONE [place] Oil Confirm 09/28/18 08:20 Sweet Oil Administered 09/28/18 08:21 Dose 118 ml MISC .STK-MED ONE Ondansetron HCl 4 mg 09/28/18 22:35 Zofran IVP 09/29/18 22:34 Q4HRS PRN Nausea/Vomiting, Can't Take PO Ondansetron HCl Confirm 09/29/18 22:20 Zofran Administered 09/29/18 22:21 Dose 4 mg .ROUTE .STK-MED ONE Phenylephrine HCl Confirm 09/28/18 21:52 Neosynephrine Administered 09/28/18 21:53 Dose 1,000 mcg .ROUTE .STK-MED ONE Terbutaline Sulfate Confirm 09/28/18 08:20 Brethine Administered 09/28/18 08:21 Dose 1 mg .ROUTE .STK-MED ONE - Vital Signs Height/Weight (Nursing): Height 152.4 cm Weight 85.275 kg - Focused Exam Neck exam: FROM Mallampati Score: Class 2 Mouth exam: normal dental/mouth exam Pulmonary: clear to auscultation Cardiovascular: regular rate and rhythym Labs: 09/28/18 06:40 09/28/18 08:30 Patient ABO/Rh O POSITIVE 09/28/18 06:40 Uric Acid 4.1 mg/dL (2.5-6.8) 09/28/18 08:30 Total Bilirubin 0.6 mg/dL (0.1-1.4) 09/28/18 08:30 Conjugated Bilirubin 0.2 mg/dL (0.0-0.5) 09/28/18 08:30 Unconjugated Bilirubin 0.4 mg/dL (0.0-1.1) 09/28/18 08:30 AST 21 IU/L (14-46) 09/28/18 08:30 ALT 20 IU/L (9-52) 09/28/18 08:30 Lactate Dehydrogenase 518 IU/L (313-618) 09/28/18 08:30 - Plan Anesthetic Plan: Epidural Consent Signed and on Chart: Yes
[2018-09-29] MEDS ORDERED: OXYTOCIN 100 UNITS/10 ML VIAL ONE (23:20)
[2018-09-30] MEDS ORDERED: POLYETHYLENE GLYCOL 3350 17 GM PKT PO PRN (00:01)
[2018-09-30] MEDS ORDERED: BISACODYL 10 MG SUPP PR PRN (00:01)
[2018-09-30] MEDS ORDERED: MAGNESIUM HYDROXIDE 30 ML UDCUP PO PRN (00:01)
[2018-09-30] MEDS ORDERED: OXYCODONE/APAP 5/325 TAB PO PRN (00:01)
[2018-09-30] MEDS ORDERED: LACTULOSE 20 GM/30 ML UDCUP PO PRN (00:01)
--- NOTE | 2018-09-30 00:13 | POSTOPPROG ---
Post Op Note Date of Operation: 09/30/18 Surgeon: Pili Garcia Critical Systems Technician: JAMES Steel, proctoring Kristen Andres CNM, for adequate exposure Anesthesiologist: Boston Roberson Anesthesia: Epidural Pre-op Diagnosis: arrest of dilation, arrest of descent Post-op Diagnosis: same Indication: arrest of dilation Procedure: primary low transverse section Findings: LOT presentation, normal appearing uterus, tubes and ovaries Inf/Abcess present in the surg proc area at time of surgery?: No EBL: 500-1000 Total fluids administered: 1200 Complications: none Bowel Protocol: No Clean Closure Performed: Yes Specimen(s): none - pt desires keeping placenta
[2018-09-30] MEDS ORDERED: IBUPROFEN 600 MG TAB PO SCH (00:15)
--- NOTE | 2018-09-30 00:53 | POSTANESTH ---
Post Anesthetic Evaluation Cardiovascular Status: Normal, Stable Respiratory Status: Normal, Stable Level of Consciousness/Mental Status: Can Participate in Eval, Alert and Oriented Pain Control: Adequate, Prn Tx Ordered Nausea/Vomiting Control: Adequate, Prn Tx Ordered Complications Possibly Related to Anesthesia: None Noted
[2018-09-30] MEDS: KETOROLAC 30 MG/1 ML SDV IVP PRN ×3 (04:39→18:37)
[2018-09-30] MEDS: ACETAMINOPHEN 325 MG TAB PO SCH ×3 (04:39→18:41)
[2018-09-30] MEDS: SENNOSIDES/DOCUSATE SODIUM TAB PO SCH (08:52)
--- NOTE | 2018-09-30 08:52 | GOP ---
[f rep st] OPERATIVE REPORT DATE OF OPERATION: 09/29/2018 SURGEON: Pili Garcia MD UNIT MANAGER: JAMES Sage, proctorhayley Andres CNM, needed for adequate exposure and retraction. ANESTHESIA: Epidural. ANESTHESIOLOGIST: Boston Roberson DO PREOPERATIVE DIAGNOSIS: Arrest of dilation and arrest of descent. POSTOPERATIVE DIAGNOSIS: Arrest of dilation and arrest of descent with transverse arrest. PROCEDURE PERFORMED: primary low transversed section FINDINGS: Left occiput transverse presentation. Normal-appearing uterus, tubes , and ovaries. Delivery of male from the LOT presentation with Apgars 8 and 9. ESTIMATED BLOOD LOSS: 800 mL. INDICATIONS: A 33-year-old 1, para 0 female who had been undergoing a post-dates induction of labor, which was started at 41 weeks and 2 days with a Judd bulb placement. She had been on Pitocin for approximately 36 hours, except for a 4-hour break window. AROM been performed with clear fluid and still there was no progress, her cervix never progressed to past 3 cm dilated. For the 3 hours prior to section, an IUPC was in place and despite continued use of Pitocin, her contraction pattern never became adequate and caput formed on the vertex. DESCRIPTION OF PROCEDURE: Benefits, risks, adverse effects, recovery, and alternatives were discussed with the patient and her . Written informed consent was obtained. The patient is taken to the operating room where her epidural anesthetic was dosed appropriately. She was then placed in the dorsal supine position. A urinary catheter was already in place. Her abdomen was sterilely prepared and draped in the standard fashion. A [employer] time-out was performed with all team members present. She was given 2 g of Ancef and 1 g of azithromycin on-call to the OR. A pinch test was performed to make sure that her anesthetic level was appropriate. A Pfannesteil incision was made and taken down sharply to the fascia. The fascia was incised on either side of the midline. The fascial incision was extended laterally with the scissors. Daylin clamps were used to elevate the superior aspect of the incision and the rectus muscles were dissected away bluntly and sharply. This was repeated on the inferior aspect of the incision. The rectus muscles were then in the midline. The peritoneum was entered bluntly. A L[place]ola retractor and a bladder blade were both inserted. The vesicouterine peritoneum was elevated and incised. A bladder flap was created bluntly. Bladder blade was replaced over the bladder flap. A hysterotomy was made sharply and extended sharply in a lateral fashion using the bandage scissors. The vertex was then able to be grasped and elevated through the incision. Bulb suctioning was performed. With the assistance of fundal pressure, the remainder of the infant was able to be delivered without difficulty. The was dried and stimulated and bulb suctioned during a 1 minute delay of cord clamping. The cord was then clamped and cut, and the infant was handed to the awaiting nurse practitioner. The uterus was then exteriorized and cleared of all clots and debris. The hysterotomy was repaired in a running locked fashion with 0 Monocryl. A 2nd imbricating layer was placed. Cautery was used to obtain excellent hemostasis of a few spots. The gutters were cleared of all clots and debris and irrigated. The uterus was replaced into the abdomen. The fascia was closed with 0 PDS in a running fashion. Irrigation of the subcutaneous tissue was performed. Cautery was used to obtain excellent hemostasis. Shana's fascia was closed with 3-0 Monocryl in a running locked fashion. Skin was then closed with 4-0 Monocryl in a running subcuticular fashion. Steri-Strips and a dressing were placed over the incision. Fundal massage was performed with removal of clot. Sponge, lap, and needle counts were correct x2. The patient was transferred to another bed and taken to recovery room in stable condition. IV FLUIDS: 1200 mL. URINE OUTPUT: 110 mL by catheterization. COMPLICATIONS: None. /[id number]/MODL MTDD
--- NOTE | 2018-09-30 12:49 | OBPP ---
Progress Note Assessment/Plan: Assessment: POD 1 s/p primary c/s for arrest of dilation with induction for post dates Plan: routine care 09/30/18 12:45 Subjective/ Course: 09/30/18 12:46 Pt doing well. states pain well controlled with toradol and tylenol. no nausea but felt not drinking water much. little UOP - concentrated. baby has latched on. bleeding moderate. has sat on side of bed without problems Objective: 09/28/18 06:40 09/28/18 08:30 Patient ABO/Rh O POSITIVE 09/28/18 06:40 Uric Acid 4.1 mg/dL (2.5-6.8) 09/28/18 08:30 Total Bilirubin 0.6 mg/dL (0.1-1.4) 09/28/18 08:30 Conjugated Bilirubin 0.2 mg/dL (0.0-0.5) 09/28/18 08:30 Unconjugated Bilirubin 0.4 mg/dL (0.0-1.1) 09/28/18 08:30 AST 21 IU/L (14-46) 09/28/18 08:30 ALT 20 IU/L (9-52) 09/28/18 08:30 Lactate Dehydrogenase 518 IU/L (313-618) 09/28/18 08:30 Temp Pulse Resp BP Pulse Ox 36.0 C 93 14 106/61 91 L 09/30/18 05:30 09/30/18 05:30 09/30/18 05:30 09/30/18 05:30 09/30/18 06:30 Uterine Position/Fundal Height: Umbilicus +2 Uterine Tone: Firm Physical Exam - Physical Exam Abdomen: non-tender (approp post op tenderness), soft, dressing (old stain on right side of bandage.), other (small lochia) Skin: normal color, warm/dry Neuro/Psych: alert, normal mood/affect
[2018-10-01] MEDS: ACETAMINOPHEN 325 MG TAB PO SCH ×5 (00:59→22:00)
[2018-10-01] MEDS: SENNOSIDES/DOCUSATE SODIUM TAB PO SCH ×3 (00:59→12:31)
[2018-10-01] MEDS: KETOROLAC 30 MG/1 ML SDV IVP PRN (01:00)
[2018-10-01] MEDS ORDERED: IBUPROFEN 600 MG TAB PO SCH (09:30)
--- NOTE | 2018-10-01 10:31 | OBPP ---
Progress Note Assessment/Plan: Assessment: 33 G1 at 41w4d undergoing PD IOL. Epidural in place and effective. Cephalic presentation confirmed again on US. No contractions after pitocin stopped about 4 hours ago. Pt ate. Plan: Restart pitocin. Once in a good pattern, will attempt to AROM. B/R/A of pitocin discussed. EFW 8.5 lb Pili Garcia MD, FACOG [facility] 09/29/18 09:31 A/P: 33 G1 undergoing PD IOL at 41w4d. No progress since pitocin restarted over 1.5 hours ago. Concern for arrhythmia for 20 min - appears to have resolved now. Will continue to observe. Currently ctxn pattern not adequate, and with fetus ballotable, would prefer not to attempt AROM at this point. Discussed my concern with pt and - as to why no progress has been made, concerns about bony pelvis structure limiting descent. Will continue to monitor and continue pitocin, hoping to get vertex well applied to cervix then plan AROM. Pili Garcia MD, FACOG 09/29/18 11:28 A/P: 33 G1 at 41w4d undergoing PD IOL - slow progress. Successful AROM - copious amounts of clear fluid. Continue pitocin - currently at 18miu/hour. Pili Garcia MD, FACOG 09/29/18 15:17 A/P: 33 G1 at 41w4d, PD IOL, no progress since AROM - over 3 hours. IUPC placed, and discussed if no progress with adequate contractions, discussed proceeding with C/S. Will try more position changes. B/R/A of C/S discussed. Will reassess. Pili Garcia MD, FACOG 09/29/18 18:19 09/29/18 21:46 A/P: 33 G1 at 41w4d, arrest of dilation and descent, in setting of PD IOL . No cervical change in over 3 hours since AROM performed. Unable to get adequate ctxn pattern despite pitocin up to 26miu/hour. Will proceed with primary Low transverse C/S. Written informed consent obtained. Will proceed. Pili Garcia MD, FACOG 10/01/18 10:30 A/P: 33 G1 now P1, POD#2 s/p primary LTCS at 41w4d, doing well. Anemia - not currently symptomatic except mild increase in heart rate. Will start Iron. Continue routine post op cares. support today. Anticipate dc home tomorrow. Pili Garcia MD, FACOG 10/01/18 10:39 Subjective/ Course: 09/30/18 12:46 Pt doing well. states pain well controlled with toradol and tylenol. no nausea but felt not drinking water much. little UOP - concentrated. baby has latched on. bleeding moderate. has sat on side of bed without problems 10/01/18 10:31 Pt doing well. Resting comfortably, though noticed it feels like her heart is racing occasionally. Has been up and voiding without difficulty. Denies lightheadedness and dizziness. Lochia is moderate today. Working on . + flatus, no BM yet. Son reg diet without nausea. Objective: 10/01/18 04:15 09/28/18 08:30 Patient ABO/Rh O POSITIVE 09/28/18 06:40 Uric Acid 4.1 mg/dL (2.5-6.8) 09/28/18 08:30 Total Bilirubin 0.6 mg/dL (0.1-1.4) 09/28/18 08:30 Conjugated Bilirubin 0.2 mg/dL (0.0-0.5) 09/28/18 08:30 Unconjugated Bilirubin 0.4 mg/dL (0.0-1.1) 09/28/18 08:30 AST 21 IU/L (14-46) 09/28/18 08:30 ALT 20 IU/L (9-52) 09/28/18 08:30 Lactate Dehydrogenase 518 IU/L (313-618) 09/28/18 08:30 Temp Pulse Resp BP Pulse Ox 36.5 C 102 H 16 127/67 H 90 L 10/01/18 01:08 10/01/18 01:08 10/01/18 01:08 10/01/18 01:08 10/01/18 01:08 gen - pleasant, NAD CV - RRR chest - CTAB abd - soft, + BS, inc - C/D/I with steristrips intact, fundus firm at u-2 ext - 1+ pitting edema BLE, no calf tenderness breasts - soft, nipples without cracking Uterine Position/Fundal Height: Umbilicus -2 Uterine Tone: Firm
[2018-10-01] MEDS: FERRO-SEQUELS 65 MG TAB.ER PO SCH ×2 (12:31→22:00)
[2018-10-01] MEDS: IBUPROFEN 600 MG TAB PO SCH ×3 (16:00→22:00)
[2018-10-02] MEDS: IBUPROFEN 600 MG TAB PO SCH ×2 (05:20→11:45)
[2018-10-02] MEDS: ACETAMINOPHEN 325 MG TAB PO SCH ×2 (05:20→11:44)
[2018-10-02] MEDS: FERRO-SEQUELS 65 MG TAB.ER PO SCH (08:15)
[2018-10-02 08:17] VITALS: BP 116/71
[2018-10-02] MEDS: SENNOSIDES/DOCUSATE SODIUM TAB PO SCH ×2 (09:06→11:51)
--- NOTE | 2018-10-02 11:12 | OBPP ---
Progress Note Assessment/Plan: Assessment: 33 y/o G1 now P1, POD#3 s/p primary LTCS at 41w4d secondary to arrest of dilation - pt is stable Anemia - not currently symptomatic except mild increase in heart rate Plan: Continue routine post op care support today Plan for d/c home later today Instructions reviewed with pt Rx given for Oxy and Motrin Cont PNV, iron and colace Pelvic rest RTC in 2, 4 and 6 weeks for pp visit 10/02/18 11:08 Subjective/ Course: 09/30/18 12:46 Pt doing well. states pain well controlled with toradol and tylenol. no nausea but felt not drinking water much. little UOP - concentrated. baby has latched on. bleeding moderate. has sat on side of bed without problems 10/01/18 10:31 Pt doing well. Resting comfortably, though noticed it feels like her heart is racing occasionally. Has been up and voiding without difficulty. Denies lightheadedness and dizziness. Lochia is moderate today. Working on . + flatus, no BM yet. Deepika reg diet without nausea. 10/02/18 11:10 Pt seen and examined. Doing well, with no complaints. Pain is well controlled, just taking Motrin and Tylenol. Pt is OOB, deepika regular diet, voiding without difficulty and have had several BMs. Mild lochia. Denies any f/c/n/v/CP or SOB. Working on BF. Ready to go home today. Objective: 10/01/18 04:15 09/28/18 08:30 Patient ABO/Rh O POSITIVE 09/28/18 06:40 Uric Acid 4.1 mg/dL (2.5-6.8) 09/28/18 08:30 Total Bilirubin 0.6 mg/dL (0.1-1.4) 09/28/18 08:30 Conjugated Bilirubin 0.2 mg/dL (0.0-0.5) 09/28/18 08:30 Unconjugated Bilirubin 0.4 mg/dL (0.0-1.1) 09/28/18 08:30 AST 21 IU/L (14-46) 09/28/18 08:30 ALT 20 IU/L (9-52) 09/28/18 08:30 Lactate Dehydrogenase 518 IU/L (313-618) 09/28/18 08:30 Temp Pulse Resp BP Pulse Ox 36.8 C 95 16 116/71 95 10/02/18 08:16 10/02/18 08:16 10/02/18 08:16 10/02/18 08:16 10/02/18 08:16 Uterine Position/Fundal Height: Umbilicus -2 Uterine Tone: Firm Physical Exam - Physical Exam General Appearance: WD/WN, alert, no apparent distress Respiratory: lungs clear, normal breath sounds Cardiac/Chest: regular rate, rhythm Abdomen: normal bowel sounds, non-tender, soft, incision (C/D/I with steri strips in place) Extremities: non-tender, pedal edema Skin: normal color, warm/dry Neuro/Psych: alert, normal mood/affect, oriented x 3
--- NOTE | 2018-10-02 11:13 | OBGCSDC ---
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 Intrapartum: 09/28/18 14:32 Pt denies any pain with her ctx's at this time 09/28/18 18:29 Pt back in room from ambulating; she states pain with these ctx's when in bed are 4/10. Good FM noted. 09/28/18 21:52 Pt just used the bathroom and noticed some blood when she wiped and some drops in the toilet. The ctx's are more painful when she is on her side. She is comfortable now with getting an epidural. 09/28/18 23:20 Pt is comfortable, s/p epidural. 09/29/18 05:44 Pt slept throughout the night. 09/29/18 09:36 Pt able to get some sleep, feels a little rested. Had some bloody show this morning. Not feeling any contractions. Ate breakfast. 09/29/18 11:47 Pt was sleeping soundly. Easily aroused. 09/29/18 18:22 Pt comfortable, has been leaking fluid. Still optimistic but realistic about increasing possibility of C/S. 09/29/18 21:53 pt feeling some more pressure and had some bloody show. : 09/30/18 12:46 Pt doing well. states pain well controlled with toradol and tylenol. no nausea but felt not drinking water much. little UOP - concentrated. baby has latched on. bleeding moderate. has sat on side of bed without problems 10/01/18 10:31 Pt doing well. Resting comfortably, though noticed it feels like her heart is racing occasionally. Has been up and voiding without difficulty. Denies lightheadedness and dizziness. Lochia is moderate today. Working on . + flatus, no BM yet. Deepika reg diet without nausea. 10/02/18 11:10 Pt seen and examined. Doing well, with no complaints. Pain is well controlled, just taking Motrin and Tylenol. Pt is OOB, deepika regular diet, voiding without difficulty and have had several BMs. Mild lochia. Denies any f/c/n/v/CP or SOB. Working on BF. Ready to go home today. Vaginal - Diagnosis Amniotic Fluid Color: Clear - Procedures Non-surgical Procedures: Amniotomy - Delivery Providers Surgeon: Pili Garcia - Delivery Indications for Current Section: Arrest of Dilation Non-surgical Procedures: Amniotomy [place] Data ANIBAL: 09/18/18 Gestational Age: 42 week(s) and 0 day(s) [place] Delivery Date: 09/30/18 Delivery Time: 22:39 Weight (gm): 3860 g Score (1 Min): 8 Score (5 Min): 9 Discharge Information - Discharge Information Condition: Good Instruction/Follow Up: Two Weeks, Four Weeks, Six Weeks
== END 2018-10-02 16:12 | disposition home or self-care (01) | DRG 788 ==
LOC: FLD 06:09 → FOB 09-30 01:26
PROVIDERS: ADMIT Obstetrics & Gynecology; ATTEND Obstetrics & Gynecology
PROC: 10H073Z Insertion of Monitoring Electrode into Products of Conception, Via Natural or Artificial Opening (ICD-10-PCS; 2018-09-28)
PROC: 3E033VJ Introduction of Other Hormone into Peripheral Vein, Percutaneous Approach (ICD-10-PCS; 2018-09-28)
PROC: 10D00Z1 Extraction of Products of Conception, Low, Open Approach (ICD-10-PCS; principal; 2018-09-29)
DX: O48.0 Post-term pregnancy (principal); O32.4XX0 Maternal care for high head at term, not applicable or unspecified; O62.0 Primary inadequate contractions; O99.013 Anemia complicating pregnancy, third trimester; D64.9 Anemia, unspecified; Z3A.42 42 weeks gestation of pregnancy; Z37.0 Single live birth
CPT/HCPCS: J0456; J0690; J1885; J2274; J2370; J2405; J2590; J2765; J3010; J3105

== ENCOUNTER → 2018-10-05 | Outpatient (CLI) | payer OTHER | LOC: FLACT 12:54 | PROVIDERS: ATTEND Hospitalist | DX: Z39.1 Encounter for care and examination of lactating mother (principal) | CPT/HCPCS: G0463 ==